=== PATIENT | male | born 1995 | race Caucasian/White ===

== ENCOUNTER 2017-08-08 19:09 | Emergency (ER) | payer OTHER ==
[2017-08-08 19:22] VITALS: RESP 16; TEMP 97.9; O2SAT 96
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
[2017-08-08] MEDS ORDERED: IBUPROFEN 800 MG TAB PO ONE (20:16)
[2017-08-08 20:39] VITALS: BP 139/81; PULSE 81
== END 2017-08-08 20:38 | disposition home or self-care (01) ==
DX: S83.91XA Sprain of unspecified site of right knee, initial encounter (principal); S90.111A Contusion of right great toe without damage to nail, initial encounter; S80.212A Abrasion, left knee, initial encounter; V86.59XA Driver of other special all-terrain or other off-road motor vehicle injured in nontraffic accident, initial encounter; Y99.8 Other external cause status; Y93.89 Activity, other specified